=== PATIENT | female | born 1965 | race Caucasian/White ===

== ENCOUNTER 2017-11-24 15:33 | Inpatient (IN) | payer OTHER ==
[2017-11-24 15:52] VITALS: BMI 32.5
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
[2017-11-24] MEDS ORDERED: IBUPROFEN 400 MG TABLET (FP) PO PRN (20:09)
[2017-11-24] MEDS ORDERED: MAGNESIUM HYDROX 2400MG/30ML ORAL SUSPENSION 30 ML CUP PO PRN (20:09)
[2017-11-24] MEDS ORDERED: MAGNESIUM CITRATE 300 ML BOTTLE PO PRN (20:09)
[2017-11-24] MEDS ORDERED: chlordiazePOXIDE HCL 25 MG CAPSULE PO PRN (20:09)
[2017-11-24] MEDS ORDERED: chlordiazePOXIDE HCL 25 MG CAPSULE PO ONE (20:09)
[2017-11-24] MEDS ORDERED: MAG HYDROX/AL HYDROX/SIMETH 30 ML UNIT-DOSE CUP PO PRN (20:09)
[2017-11-24] MEDS ORDERED: MENTHOL/PHENOL 1 EACH UD MM PRN (20:09)
[2017-11-24] MEDS ORDERED: P-EPHED 60MG/TRIPROLIDI 2.5MG TABLET PO PRN (20:09)
[2017-11-24] MEDS ORDERED: hydrOXYzine PAMOATE 50 MG CAPSULE (FP) PO PRN (20:09)
[2017-11-24] MEDS ORDERED: NICOTINE POLACRILEX 2 MG GUM BC PRN (20:09)
[2017-11-24] MEDS ORDERED: ACETAMINOPHEN 325 MG TABLET (FP) PO PRN (20:09)
[2017-11-24] MEDS ORDERED: LOPERAMIDE HCL 2 MG CAPSULE PO PRN (20:09)
[2017-11-24] MEDS ORDERED: guaiFENesin/D-METHORPHAN HB 10 ML UNIT-DOSE CUPS PO PRN (20:09)
[2017-11-24] MEDS ORDERED: diphenhydrAMINE HCL 25 MG CAPSULE (FP) PO PRN (20:22)
[2017-11-24] MEDS ORDERED: ERGOCALCIFEROL (VITAMIN D2) 50,000 UNIT CAPSULE (FP) PO SCH (21:30)
[2017-11-24] MEDS: chlordiazePOXIDE HCL 25 MG CAPSULE PO SCH (22:40)
[2017-11-24] MEDS: THIAMINE HCL 100 MG TABLET (FP) PO SCH (22:40)
[2017-11-25] MEDS ORDERED: diazePAM 5 MG TABLET PO SCH (06:00)
[2017-11-25] MEDS: chlordiazePOXIDE HCL 25 MG CAPSULE PO SCH ×2 (06:45→11:32)
[2017-11-25] MEDS: FERROUS SO4 325 MG TABLET (FP) PO SCH ×3 (07:52→17:38)
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
[2017-11-25 10:25] LABS: HEMATOCRIT 35.9 % (32.4-45.2); HEMOGLOBIN 11.1 GM/dL (10.7-15.3); MCH 25.3 pg (25.7-33.7); MEAN CELL VOLUME 81.6 fl (80-96); MEAN PLT VOLUME 9.2 fl (7.5-11.1); PLATELET COUNT 316 K/MM3 (134-434); RDW 25.6 % (11.6-15.6)
[2017-11-25 11:07] LABS: ALBUMIN 3.7 g/dl (3.4-5.0); CALCIUM 8.9 mg/dL (8.5-10.1); CHLORIDE 105 mmol/L (98-107); POTASSIUM 4.2 mmol/L (3.5-5.1); SODIUM 140 mmol/L (136-145)
[2017-11-25 11:13] LABS: ALK PHOS 88 U/L (45-117); ANION GAP 7 (8-16); BILIRUBIN,TOTAL 0.2 mg/dL (0.2-1.0); BLOOD UREA NITROGEN 14 mg/dL (7-18); CO2 28 mmol/L (21-32); GLUCOSE,RANDOM 94 mg/dL (74-106); SGOT/AST 18 U/L (15-37); SGPT/ALT 17 U/L (12-78); TOT PROT 6.6 g/dl (6.4-8.2)
--- NOTE | 2017-11-25 11:27 | PN ---
[facility] CIWA - CIWA Score Nausea/Vomitin-Mild Nausea/No Vomiting Muscle Tremors: 4-Moderate,w/Arms Extend Anxiety: 4-Mod. Anxious/Guarded Agitation: 4-Moderately Restless Paroxysmal Sweats: 1-Minimal Palms Moist Orientation: 0-Oriented Tacttile Disturbances: 0-None Auditory Disturbances: 0-None Visual Disturbances: 0-None Headache: 0-None Present CIWA-Ar Total Score: 14 S Progress Note (SOAP) Subjective: patient c/o librium does not work well with her and requests valium for alcohol detox sweat tremor anxiety restlessness Objective: 11/25/17 11:24 Vital Signs Temperature 97.7 F 11/25/17 09:23 Pulse Rate 69 11/25/17 09:23 Respiratory Rate 16 11/25/17 09:23 Blood Pressure 103/49 11/25/17 09:23 O2 Sat by Pulse Oximetry (%) Laboratory Last Values WBC 5.0 K/mm3 (4.0-10.0) 11/25/17 07:00 RBC 4.40 M/mm3 (3.60-5.2) 11/25/17 07:00 Hgb 11.1 GM/dL (10.7-15.3) 11/25/17 07:00 Hct 35.9 % (32.4-45.2) 11/25/17 07:00 MCV 81.6 fl (80-96) 11/25/17 07:00 MCH 25.3 pg (25.7-33.7) L 11/25/17 07:00 MCHC 31.0 g/dl (32.0-36.0) L 11/25/17 07:00 RDW 25.6 % (11.6-15.6) H 11/25/17 07:00 Plt Count 316 K/MM3 (134-434) 11/25/17 07:00 MPV 9.2 fl (7.5-11.1) 11/25/17 07:00 Hypersegmented Neuts Cancelled 11/25/17 07:00 Hypochromia Cancelled 11/25/17 07:00 Toxic Granulation Cancelled 11/25/17 07:00 Dohle Bodies Cancelled 11/25/17 07:00 Polychromasia Cancelled 11/25/17 07:00 Poikilocytosis Cancelled 11/25/17 07:00 Basophilic Stippling Cancelled 11/25/17 07:00 Anisocytosis Cancelled 11/25/17 07:00 Microcytosis Cancelled 11/25/17 07:00 Macrocytosis Cancelled 11/25/17 07:00 Spherocytes Cancelled 11/25/17 07:00 Siderocytes Cancelled 11/25/17 07:00 Sickle Cells Cancelled 11/25/17 07:00 Target Cells Cancelled 11/25/17 07:00 Tear Drop Cells Cancelled 11/25/17 07:00 Ovalocytes Cancelled 11/25/17 07:00 Stomatocytes Cancelled 11/25/17 07:00 Helmet Cells Cancelled 11/25/17 07:00 [place] Bodies Cancelled 11/25/17 07:00 [place] Rings Cancelled 11/25/17 07:00 Robert Cells Cancelled 11/25/17 07:00 Acanthocytes (Spur) Cancelled 11/25/17 07:00 Rouleaux Cancelled 11/25/17 07:00 Fragmented RBCs Cancelled 11/25/17 07:00 Schistocytes Cancelled 11/25/17 07:00 Morphology Comment Cancelled 11/25/17 07:00 Sodium 140 mmol/L (136-145) 11/25/17 07:00 Potassium 4.2 mmol/L (3.5-5.1) 11/25/17 07:00 Chloride 105 mmol/L (98-107) 11/25/17 07:00 Carbon Dioxide 28 mmol/L (21-32) 11/25/17 07:00 Anion Gap 7 (8-16) L 11/25/17 07:00 BUN 14 mg/dL (7-18) 11/25/17 07:00 Creatinine 1.0 mg/dL (0.55-1.02) 11/25/17 07:00 Creat Clearance w eGFR 58.22 (>60) 11/25/17 07:00 POC Glucometer 90 UNITS (80-120) 11/24/17 19:26 Random Glucose 94 mg/dL (74-106) 11/25/17 07:00 Calcium 8.9 mg/dL (8.5-10.1) 11/25/17 07:00 Total Bilirubin 0.2 mg/dL (0.2-1.0) 11/25/17 07:00 AST 18 U/L (15-37) 11/25/17 07:00 ALT 17 U/L (12-78) 11/25/17 07:00 Alkaline Phosphatase 88 U/L (45-117) 11/25/17 07:00 Total Protein 6.6 g/dl (6.4-8.2) 11/25/17 07:00 Albumin 3.7 g/dl (3.4-5.0) 11/25/17 07:00 lab noted 11/25/17 11:25 gfr 58 Assessment: 11/25/17 11:25 withdrawal sx 11/25/17 11:26 gfr 58 Plan: continue detox ua ordered result pending
[2017-11-25] MEDS: PRENATAL VITAMINS W/ FOLIC ACID TABLET (FP) PO SCH (11:31)
[2017-11-25] MEDS: NICOTINE 14 MG/24 HOURS TOPICAL PATCH TD SCH (11:32)
--- NOTE | 2017-11-25 14:32 | EKG ---
Test Reason : Blood Pressure : / mmHG Vent. Rate : 069 BPM Atrial Rate : 069 BPM P-R Int : 174 ms QRS Dur : 092 ms QT Int : 406 ms P-R-T Axes : -09 000 011 degrees QTc Int : 435 ms NORMAL SINUS RHYTHM POSSIBLE ANTERIOR INFARCT , AGE UNDETERMINED ABNORMAL ECG NO PREVIOUS ECGS AVAILABLE Confirmed by LIMA REYNOLDS MD ([id number]) on 11/25/2017 2:32:09 PM Referred By: Confirmed By:LIMA REYNOLDS MD
[2017-11-25] MEDS: diazePAM 5 MG TABLET PO SCH ×2 (14:33→22:31)
--- NOTE | 2017-11-25 14:33 | EKG ---
Test Reason : Blood Pressure : / mmHG Vent. Rate : 072 BPM Atrial Rate : 072 BPM P-R Int : 206 ms QRS Dur : 094 ms QT Int : 412 ms P-R-T Axes : 070 010 010 degrees QTc Int : 451 ms NORMAL SINUS RHYTHM SEPTAL INFARCT (CITED ON OR BEFORE 24-NOV-2017) ABNORMAL ECG WHEN COMPARED WITH ECG OF 24-NOV-2017 20:53, T WAVE AMPLITUDE HAS DECREASED IN LATERAL LEADS Confirmed by LIMA REYNOLDS MD ([id number]) on 11/25/2017 2:32:51 PM Referred By: Confirmed By:LIMA REYNOLDS MD
[2017-11-25] MEDS: THIAMINE HCL 100 MG TABLET (FP) PO SCH (22:31)
[2017-11-25] MEDS: MELATONIN 5 MG TABLETS PO PRN (22:31)
[2017-11-25] MEDS ORDERED: chlordiazePOXIDE HCL 25 MG CAPSULE PO SCH (23:00)
[2017-11-25 23:19] LABS: URINE APPEARANCE CLEAR; URINE BILIRUBIN NEGATIVE (<2.0 mg/dL); URINE COLOR STRAW; URINE GLUCOSE (UA) NEGATIVE (NEGATIVE); URINE KETONE NEGATIVE (NEGATIVE); URINE LEUK ESTERASE NEGATIVE (NEGATIVE); URINE NITRITE NEGATIVE (NEGATIVE); URINE PROTEIN NEGATIVE (NEGATIVE); URINE UROBILINOGEN NEGATIVE mg/dL (0.2-1.0)
[2017-11-26] MEDS: FERROUS SO4 325 MG TABLET (FP) PO SCH ×3 (08:03→17:21)
--- NOTE | 2017-11-26 09:06 | PN ---
S CIWA - CIWA Score Nausea/Vomitin-Mild Nausea/No Vomiting Muscle Tremors: 3 Anxiety: 3 Agitation: 3 Paroxysmal Sweats: 1-Minimal Palms Moist Orientation: 0-Oriented Tacttile Disturbances: 1-Very Mild Itch/Numbness Auditory Disturbances: 0-None Visual Disturbances: 0-None Headache: 0-None Present CIWA-Ar Total Score: 12 BHS Progress Note (SOAP) Subjective: sweat tremor anxiety restlessness trouble sleep at night "I want more valium" "Increase my valium" Objective: 11/26/17 09:02 Vital Signs Temperature 97.0 F L 11/26/17 06:00 Pulse Rate 64 11/26/17 06:00 Respiratory Rate 18 11/26/17 06:00 Blood Pressure 97/56 11/26/17 06:00 O2 Sat by Pulse Oximetry (%) Laboratory Last Values WBC 5.0 K/mm3 (4.0-10.0) 11/25/17 07:00 RBC 4.40 M/mm3 (3.60-5.2) 11/25/17 07:00 Hgb 11.1 GM/dL (10.7-15.3) 11/25/17 07:00 Hct 35.9 % (32.4-45.2) 11/25/17 07:00 MCV 81.6 fl (80-96) 11/25/17 07:00 MCH 25.3 pg (25.7-33.7) L 11/25/17 07:00 MCHC 31.0 g/dl (32.0-36.0) L 11/25/17 07:00 RDW 25.6 % (11.6-15.6) H 11/25/17 07:00 Plt Count 316 K/MM3 (134-434) 11/25/17 07:00 MPV 9.2 fl (7.5-11.1) 11/25/17 07:00 Hypersegmented Neuts Cancelled 11/25/17 07:00 Hypochromia Cancelled 11/25/17 07:00 Toxic Granulation Cancelled 11/25/17 07:00 Dohle Bodies Cancelled 11/25/17 07:00 Polychromasia Cancelled 11/25/17 07:00 Poikilocytosis Cancelled 11/25/17 07:00 Basophilic Stippling Cancelled 11/25/17 07:00 Anisocytosis Cancelled 11/25/17 07:00 Microcytosis Cancelled 11/25/17 07:00 Macrocytosis Cancelled 11/25/17 07:00 Spherocytes Cancelled 11/25/17 07:00 Siderocytes Cancelled 11/25/17 07:00 Sickle Cells Cancelled 11/25/17 07:00 Target Cells Cancelled 11/25/17 07:00 Tear Drop Cells Cancelled 11/25/17 07:00 Ovalocytes Cancelled 11/25/17 07:00 Stomatocytes Cancelled 11/25/17 07:00 Helmet Cells Cancelled 11/25/17 07:00 Avila-[place] Bodies Cancelled 11/25/17 07:00 [place] Rings Cancelled 11/25/17 07:00 [place] Cells Cancelled 11/25/17 07:00 Acanthocytes (Spur) Cancelled 11/25/17 07:00 Rouleaux Cancelled 11/25/17 07:00 Fragmented RBCs Cancelled 11/25/17 07:00 Schistocytes Cancelled 11/25/17 07:00 Morphology Comment Cancelled 11/25/17 07:00 Sodium 140 mmol/L (136-145) 11/25/17 07:00 Potassium 4.2 mmol/L (3.5-5.1) 11/25/17 07:00 Chloride 105 mmol/L (98-107) 11/25/17 07:00 Carbon Dioxide 28 mmol/L (21-32) 11/25/17 07:00 Anion Gap 7 (8-16) L 11/25/17 07:00 BUN 14 mg/dL (7-18) 11/25/17 07:00 Creatinine 1.0 mg/dL (0.55-1.02) 11/25/17 07:00 Creat Clearance w eGFR 58.22 (>60) 11/25/17 07:00 POC Glucometer 90 UNITS (80-120) 11/24/17 19:26 Random Glucose 94 mg/dL (74-106) 11/25/17 07:00 Calcium 8.9 mg/dL (8.5-10.1) 11/25/17 07:00 Total Bilirubin 0.2 mg/dL (0.2-1.0) 11/25/17 07:00 AST 18 U/L (15-37) 11/25/17 07:00 ALT 17 U/L (12-78) 11/25/17 07:00 Alkaline Phosphatase 88 U/L (45-117) 11/25/17 07:00 Total Protein 6.6 g/dl (6.4-8.2) 11/25/17 07:00 Albumin 3.7 g/dl (3.4-5.0) 11/25/17 07:00 Urine Color Straw 11/24/17 16:00 Urine Appearance Clear 11/24/17 16:00 Urine pH 5.0 (5.0-8.0) 11/24/17 16:00 Ur Specific [place] 1.003 (1.001-1.035) 11/24/17 16:00 Urine Protein Negative (NEGATIVE) 11/24/17 16:00 Urine Glucose (UA) Negative (NEGATIVE) 11/24/17 16:00 Urine Ketones Negative (NEGATIVE) 11/24/17 16:00 Urine Blood Negative (NEGATIVE) 11/24/17 16:00 Urine Nitrite Negative (NEGATIVE) 11/24/17 16:00 Urine Bilirubin Negative (<2.0 mg/dL) 11/24/17 16:00 Urine Urobilinogen Negative mg/dL (0.2-1.0) 11/24/17 16:00 Ur Leukocyte Esterase Negative (NEGATIVE) 11/24/17 16:00 RPR Titer Nonreactive (NONREACTIVE) 11/25/17 07:00 HIV 1&2 Antibody Screen Negative 11/25/17 07:00 HIV P24 Antigen Negative 11/25/17 07:00 lab noted gfr 58 health teaching on benzos misuse related health issues Assessment: 11/26/17 09:04 withdrawal sx knowledge deficit in benzos misuse Plan: continue detox health teaching on benzos misuse
[2017-11-26] MEDS: diazePAM 5 MG TABLET PO SCH ×2 (10:30→22:20)
[2017-11-26] MEDS: PRENATAL VITAMINS W/ FOLIC ACID TABLET (FP) PO SCH (10:30)
[2017-11-26] MEDS: NICOTINE 14 MG/24 HOURS TOPICAL PATCH TD SCH (10:31)
[2017-11-26] MEDS: THIAMINE HCL 100 MG TABLET (FP) PO SCH (22:20)
[2017-11-26] MEDS: MELATONIN 5 MG TABLETS PO PRN (22:21)
[2017-11-26] MEDS ORDERED: chlordiazePOXIDE 5 MG CAPSULE PO SCH (23:00)
[2017-11-27] MEDS: diazePAM 5 MG TABLET PO PRN ×2 (06:20→17:31)
[2017-11-27] MEDS: FERROUS SO4 325 MG TABLET (FP) PO SCH ×3 (08:15→17:31)
[2017-11-27] MEDS ORDERED: diazePAM 5 MG TABLET PO SCH (10:00)
[2017-11-27] MEDS: NICOTINE 14 MG/24 HOURS TOPICAL PATCH TD SCH (11:01)
[2017-11-27] MEDS: diazePAM 5 MG TABLET PO SCH (11:01)
[2017-11-27] MEDS: PRENATAL VITAMINS W/ FOLIC ACID TABLET (FP) PO SCH (11:01)
--- NOTE | 2017-11-27 11:07 | PN ---
S Progress Note (SOAP) Subjective: feeling better no sweat no tremor sleep better at night Objective: 11/27/17 11:06 Vital Signs Temperature 97.7 F 11/27/17 09:48 Pulse Rate 74 11/27/17 09:48 Respiratory Rate 20 11/27/17 09:48 Blood Pressure 110/68 11/27/17 09:48 O2 Sat by Pulse Oximetry (%) Laboratory Last Values WBC 5.0 K/mm3 (4.0-10.0) 11/25/17 07:00 RBC 4.40 M/mm3 (3.60-5.2) 11/25/17 07:00 Hgb 11.1 GM/dL (10.7-15.3) 11/25/17 07:00 Hct 35.9 % (32.4-45.2) 11/25/17 07:00 MCV 81.6 fl (80-96) 11/25/17 07:00 MCH 25.3 pg (25.7-33.7) L 11/25/17 07:00 MCHC 31.0 g/dl (32.0-36.0) L 11/25/17 07:00 RDW 25.6 % (11.6-15.6) H 11/25/17 07:00 Plt Count 316 K/MM3 (134-434) 11/25/17 07:00 MPV 9.2 fl (7.5-11.1) 11/25/17 07:00 Hypersegmented Neuts Cancelled 11/25/17 07:00 Hypochromia Cancelled 11/25/17 07:00 Toxic Granulation Cancelled 11/25/17 07:00 Dohle Bodies Cancelled 11/25/17 07:00 Polychromasia Cancelled 11/25/17 07:00 Poikilocytosis Cancelled 11/25/17 07:00 Basophilic Stippling Cancelled 11/25/17 07:00 Anisocytosis Cancelled 11/25/17 07:00 Microcytosis Cancelled 11/25/17 07:00 Macrocytosis Cancelled 11/25/17 07:00 Spherocytes Cancelled 11/25/17 07:00 Siderocytes Cancelled 11/25/17 07:00 Sickle Cells Cancelled 11/25/17 07:00 Target Cells Cancelled 11/25/17 07:00 Tear Drop Cells Cancelled 11/25/17 07:00 Ovalocytes Cancelled 11/25/17 07:00 Stomatocytes Cancelled 11/25/17 07:00 Helmet Cells Cancelled 11/25/17 07:00 Avila-[place] Bodies Cancelled 11/25/17 07:00 [place] Rings Cancelled 11/25/17 07:00 Robert Cells Cancelled 11/25/17 07:00 Acanthocytes (Spur) Cancelled 11/25/17 07:00 Rouleaux Cancelled 11/25/17 07:00 Fragmented RBCs Cancelled 11/25/17 07:00 Schistocytes Cancelled 11/25/17 07:00 Morphology Comment Cancelled 11/25/17 07:00 Sodium 140 mmol/L (136-145) 11/25/17 07:00 Potassium 4.2 mmol/L (3.5-5.1) 11/25/17 07:00 Chloride 105 mmol/L (98-107) 11/25/17 07:00 Carbon Dioxide 28 mmol/L (21-32) 11/25/17 07:00 Anion Gap 7 (8-16) L 11/25/17 07:00 BUN 14 mg/dL (7-18) 11/25/17 07:00 Creatinine 1.0 mg/dL (0.55-1.02) 11/25/17 07:00 Creat Clearance w eGFR 58.22 (>60) 11/25/17 07:00 POC Glucometer 135 UNITS (80-120) 11/27/17 06:44 Random Glucose 94 mg/dL (74-106) 11/25/17 07:00 Calcium 8.9 mg/dL (8.5-10.1) 11/25/17 07:00 Total Bilirubin 0.2 mg/dL (0.2-1.0) 11/25/17 07:00 AST 18 U/L (15-37) 11/25/17 07:00 ALT 17 U/L (12-78) 11/25/17 07:00 Alkaline Phosphatase 88 U/L (45-117) 11/25/17 07:00 Total Protein 6.6 g/dl (6.4-8.2) 11/25/17 07:00 Albumin 3.7 g/dl (3.4-5.0) 11/25/17 07:00 Urine Color Straw 11/24/17 16:00 Urine Appearance Clear 11/24/17 16:00 Urine pH 5.0 (5.0-8.0) 11/24/17 16:00 Ur Specific [place] 1.003 (1.001-1.035) 11/24/17 16:00 Urine Protein Negative (NEGATIVE) 11/24/17 16:00 Urine Glucose (UA) Negative (NEGATIVE) 11/24/17 16:00 Urine Ketones Negative (NEGATIVE) 11/24/17 16:00 Urine Blood Negative (NEGATIVE) 11/24/17 16:00 Urine Nitrite Negative (NEGATIVE) 11/24/17 16:00 Urine Bilirubin Negative (<2.0 mg/dL) 11/24/17 16:00 Urine Urobilinogen Negative mg/dL (0.2-1.0) 11/24/17 16:00 Ur Leukocyte Esterase Negative (NEGATIVE) 11/24/17 16:00 RPR Titer Nonreactive (NONREACTIVE) 11/25/17 07:00 HIV 1&2 Antibody Screen Negative 11/25/17 07:00 HIV P24 Antigen Negative 11/25/17 07:00 lab noted Assessment: 11/27/17 11:07 mild withdrawal sx Plan: medically supervised detox
[2017-11-27 14:43] VITALS: PULSE 76
--- NOTE | 2017-11-27 18:09 | DS ---
[facility] Detox Discharge Summary Admission Date: 11/24/17 - Physical Exam Results Vital Signs: Vital Signs Temperature 97.7 F 11/27/17 14:42 Pulse Rate 76 11/27/17 14:42 Respiratory Rate 20 11/27/17 14:42 Blood Pressure 125/59 11/27/17 14:42 O2 Sat by Pulse Oximetry (%) - Treatment Hospital Course: Detox Protocol Followed, Detoxed Safely (Patient due for discharge tomorrow morning. Notified by JIA Olvera patient requesting to leave now. As per RN, patient stated "I need to get the fuck out of here". Patient refused to wait to speak to provider. Patient discharged.) - Medication Discharge Medications: Ambulatory Orders Ergocalciferol (Vitamin D2) [Vitamin D2] 50,000 unit PO WEEKLY 11/24/17 Ferrous Sulfate 325 mg PO TID #90 tablet 11/27/17 - AMA Did Patient Leave Against Medical Advice: No
--- NOTE | 2017-11-27 18:17 | PN ---
[facility] Progress Note Note: Notified by JIA Olvera patient requesting to be discharge now. Patient due for discharge tomorrow morning. As per RN, patient stated " I need to get the fuck out of here".Patient refused to wait to speak to bid writer. Security called and was present on unit at time of phone call. Early discharge ordered.
[2017-11-27 19:09] VITALS: BP 114/66; TEMP 97.5
[2017-11-27] MEDS ORDERED: chlordiazePOXIDE HCL 10 MG CAPSULE PO SCH (23:00)
[2017-11-28] MEDS ORDERED: diazePAM 5 MG TABLET PO SCH (10:00)
[2017-11-29] MEDS ORDERED: diazePAM 5 MG TABLET PO SCH (10:00)
== END 2017-11-27 18:10 | disposition home or self-care (01) | DRG 774 ==
LOC: YASAS 15:33 → Y6N 19:30
PROVIDERS: ADMIT Surgery; ATTEND Surgery
PROC: HZ2ZZZZ Detoxification Services for Substance Abuse Treatment (ICD-10-PCS; principal; 2017-11-24)
DX: F10.230 Alcohol dependence with withdrawal, uncomplicated (principal); F14.20 Cocaine dependence, uncomplicated; F17.213 Nicotine dependence, cigarettes, with withdrawal; F31.9 Bipolar disorder, unspecified; D50.9 Iron deficiency anemia, unspecified; D25.9 Leiomyoma of uterus, unspecified; R01.1 Cardiac murmur, unspecified; M79.672 Pain in left foot; Z86.69 Personal history of other diseases of the nervous system and sense organs
CPT/HCPCS: 36415; 80053; 81003; 82962; 85027; 86593; 87389; 93005; 93010